=== PATIENT | female | born 1945 | race Caucasian/White ===

== ENCOUNTER 2023-01-19 12:47 | Inpatient (IN) | payer OTHER, SELFPAY ==
[2023-01-19] VITALS (12 sets, daily range): BP systolic 71–128; BP diastolic 43–59; PULSE 71–91; RESP 13–19; TEMP 36.6–37.8; O2SAT 97–100; BMI 24.2; BMI 24.7
[2023-01-19] MEDS: SODIUM CHLORIDE 0.9% 1,000 ML 1000 ML IV ×2 (13:17→14:20)
[2023-01-19] MEDS: PANTOPRAZOLE 40 MG VIAL 80 MG IV (13:35)
[2023-01-19 13:39] LABS: Add Manual Diff / Slide Review NO; Basophils Absolute Auto 100 /uL (0-100); Basophils Percent Auto 0.4 % (0-2); Eosinophils Absolute Auto 100 /uL (0-450); Eosinophils Percent Auto 0.4 % (2-4); Hematocrit 35.2 % (36-46); Hemoglobin 11.9 g/dL (12.0-16.0); Lymphocytes Absolute Auto 2800 /uL (1100-4500); Lymphocytes Percent Auto 20.4 % (25-40); Mean Corpuscular HGB Conc 33.9 % (30-36); Mean Corpuscular Volume 88.3 fL (80-100); Monocytes Absolute Auto 900 /uL (0-900); Monocytes Percent Auto 6.2 % (3-14); Neutrophils Absolute Auto 10100 /uL (1500-7000); Neutrophils Percent Auto 72.6 % (50-75); Platelet Count 166 X10^3/uL (150-400); Red Blood Cell Count 3.98 X10^6/uL (4.0-5.2); Red Cell Distribution Width 13.7 % (11.6-14.8)
--- NOTE | 2023-01-19 13:41 | DI.CT.S_ITS ---
PROCEDURE: CT ABDOMEN PELVIS W CON INDICATIONS: v/d TECHNIQUE: After the administration of intravenous contrast, axial sections acquired from the lung bases to the pubic symphysis. Coronal and sagittal reformats were performed. For radiation dose reduction, the following was used: automated exposure control, adjustment of mA and/or kV according to patient size. COMPARISON: None. FINDINGS: Image quality: Excellent. Lung bases: Unremarkable. Incidental note is made of a small posterior medial right diaphragmatic defect allowing herniation of a small amount of right upper quadrant retroperitoneal fat into the posterior pleural space. No associated ischemic injury is present. Heart: No significant findings. ABDOMEN: Liver: Unremarkable. Gallbladder: Unremarkable. Biliary ducts: Unremarkable. Pancreas: Unremarkable. Spleen: Unremarkable. Adrenal Glands: Unremarkable. Kidneys and Ureters: Unremarkable on the left but there is a 8 mm 1330 Hounsfield unit right mid kidney nonobstructive calculus involving the collecting system.. Stomach and Bowel: Stomach, small bowel loops, and colon are unremarkable. Peritoneum: No abnormal intraperitoneal fluid. No free air. Ventral Wall: No hernias. Abdominal Nodes: No retroperitoneal or mesenteric adenopathy by size criteria. Vessels: Aorta and inferior vena cava are normal in size. PELVIS: Pelvic Organs: Unremarkable except for heterogeneity and lobulation of the uterine margins and myometrium, likely reflecting fibroids.. Bladder: Unremarkable. Pelvic Nodes: No enlarged lymph nodes. Miscellaneous: No hernias are seen. Bones: Unremarkable. IMPRESSION: Incidental note is made of a small posterior right diaphragmatic hernia allowing subdiaphragmatic retroperitoneal fat to extend to a small degree into the right pleural space. This likely is asymptomatic by appearance. No source of current symptoms is identified. The stomach is not distended, no distal esophageal dilatation or mass is identified either. 8 mm nonobstructive calculus right kidney, probable uterine fibroids which could be further assessed by elective follow-up pelvic ultrasound if clinically indicated. Dictated by: Yoandy Lema M.D. on 01/19/2023 at 14:28 Approved by: Yoandy Lema M.D. on 01/19/2023 at 14:33
--- NOTE | 2023-01-19 13:41 | ED.NAVMDI ---
HPI - Nausea/Vomiting/Diarrhea General Chief complaint: Nausea/Vomiting/Diarrhea Stated complaint: Diarrhea/Vomiting few weeks Time Seen by Provider: 01/19/23 13:30 Source: patient Mode of arrival: Wheelchair Limitations: no limitations History of Present Illness HPI Narrative: This is a 77-year-old female with history of hypertension, dyslipidemia, has had recent electrolyte abnormalities and chronic diarrhea. Patient presents today with several weeks of diarrhea, vomiting at least once weekly she is vomited twice today she states it has been darker. She has not appreciated lack. Patient states she is felt lightheaded and unwell, she has not had a syncopal episode but states she is felt near. She denies chest pain, she denies shortness of breath. She describes fatigue. She states no abdominal back or flank pain. No dysuria, urgency frequency. Frequent regular diarrhea. She states she is been taking potassium, calcium and magnesium supplementation from her physician for this. Patient states she is had stool studies but does not describe any colonoscopy or EGD. She was seen on January 05 [facility] [place] had labs and she states had magnesium replaced. She did take 40 mg of lisinopril and 25 mg of HCTZ this morning prior to arrival. She states other than breast biopsies no other surgeries. No known drug allergies. No tobacco, drinks 1 alcoholic drink daily, no illicit. She lives in [place], her and her have a house in the area visiting currently. Related Data Home Medications Medication Instructions Recorded Confirmed atorvastatin 80 mg tablet 80 mg PO BEDTIME 01/19/23 01/19/23 hydrochlorothiazide 12.5 mg tablet 12.5 mg PO DAILY 01/19/23 01/19/23 lisinopril 40 mg tablet 40 mg PO DAILY 01/19/23 01/19/23 paroxetine HCl 10 mg tablet 10 mg PO BID 01/19/23 01/19/23 potassium chloride 20 mEq 20 meq PO DAILY 01/19/23 01/19/23 tablet,extended release(part/cryst) Allergies Allergy/AdvReac Type Severity Reaction Status Date / Time No Known Drug Allergies Allergy Verified 01/19/23 13:11 Review of Systems Review of Systems ROS Unobtainable: All systems reviewed & are unremarkable except as noted in HPI and below Patient History Medical History HOCM (hypertrophic obstructive cardiomyopathy) HTN (hypertension) Schatzki's ring of distal esophagus Secondary hyperparathyroidism Surgical History H/O esophagogastroduodenoscopy Social History household members: spouse Smoking Status: Former smoker alcohol intake: current Smoking Status: Former smoker alcohol intake frequency: 0-2 drinks per day Alcohol type: hard liquor Substance Use Type: does not use Exam Narrative Exam Narrative: GENERAL: Alert and oriented x three, pale female in moderate distress. HEENT: Head normocephalic, atraumatic, EOMI, pupils reactive, face symmetric, moist mucous membranes NECK: Supple, full range of motion CARDIOVASCULAR: Regular rate and rhythm without murmurs, rubs or gallops. RESPIRATORY: Breath sounds equal bilaterally, no wheezes rales or rhonchi. ABDOMEN: Soft, nontender. Nondistended. Normoactive bowel sounds all 4 quadrants. No guarding or rebound, rigidity, no mass, : No CVA tenderness EXTREMITIES: Normal range of motion, no clubbing or edema. Neurovascularly intact NEUROLOGICAL: Cranial nerves II through XII grossly intact. Moving all extremities SKIN: Warm, dry, no petechiae, no rashes or lesions. Initial Vital Signs Initial Vital Signs: Vital Signs Temperature 97.8 F 01/19/23 13:08 Pulse Rate 91 H 01/19/23 13:08 Respiratory Rate 18 01/19/23 13:08 Blood Pressure 88/53 L 01/19/23 13:08 Pulse Oximetry 100 01/19/23 13:08 Oxygen Delivery Method Room Air 01/19/23 13:08 Course Orders Ordered: ED Orders 01/19/23 13:29 Complete Blood Count AUTO DIFF Stat Comprehensive Metabolic Panel Stat Lactate (Lactic Acid) Stat Lipase Stat MAG [Magnesium] Stat PTT Partial Thromboplastin Tommy Stat Procalcitonin Stat Prothrombin Time INR Stat Type and Screen Stat 01/19/23 13:39 Gastric Occult with pH Stat 01/19/23 13:41 CT abdomen pelvis w con Stat 01/19/23 13:45 EKG-12 Lead Stat 01/19/23 14:28 GI Panel (Film Array) Stat 01/19/23 14:47 Blood Culture Stat Acetaminophen (Acetaminophen 325 Mg Tablet) 650 mg PO Q6H PRN PRN Reason: Fever/Mild Pain (1-3) Enoxaparin Sodium (Enoxaparin 40 Mg/0.4 Ml Syringe) 40 mg SUBCUT DAILY SHANNA Sodium Chloride (Normal Saline 0.9%) 1,000 mls @ 100 mls/hr IV CONT SHANNA Last Admin: 01/19/23 16:35 Dose: 100 mls/hr Documented By: NICOLE Morphine Sulfate (Morphine 4 Mg/Ml Inj) 3 mg IV Q4HR PRN PRN Reason: Pain, Severe (7-10) Naloxone HCl (Naloxone 0.4 Mg/Ml Vial) 0.2 mg IV Q2MIN PRN PRN Reason: Opiate Reversal Ondansetron HCl (Ondansetron 4 Mg/2 Ml Inj) 4 mg IV Q4HR PRN PRN Reason: Nausea And Vomiting Discontinued Medications Sodium Chloride (Normal Saline 0.9%) 1,000 mls @ 1,000 mls/hr IV BOLUS PRN PRN Reason: Fluid replacement Last Infusion: 01/19/23 14:39 Dose: 0 mls/hr Documented By: Admin: 01/19/23 14:20 Dose: 1,000 mls/hr Documented By: Infusion: 01/19/23 14:19 Dose: 0 mls/hr Documented By: Admin: 01/19/23 13:17 Dose: 1,000 mls/hr Documented By: ELMER Sodium Chloride (Normal Saline 0.9%) 1,000 mls @ 1,000 mls/hr IV BOLUS PRN PRN Reason: Fluid replacement Piperacillin Sod/Tazobactam (Sod 4.5 gm/ Sodium Chloride) 100 mls @ 200 mls/hr IV NOW ONE Stop: 01/19/23 14:30 Last Infusion: 01/19/23 15:54 Dose: 0 mls/hr Documented By: Admin: 01/19/23 14:58 Dose: 200 mls/hr Documented By: KARIME Lactated Ringer's (Lactated Ringers) 1,000 mls @ 1,000 mls/hr IV BOLUS ONE Stop: 01/19/23 15:48 Last Infusion: 01/19/23 15:55 Dose: 0 mls/hr Documented By: Admin: 01/19/23 14:57 Dose: 1,000 mls/hr Documented By: AKRIME Ondansetron HCl (Ondansetron 4 Mg/2 Ml Inj) 4 mg IV NOW PRN PRN Reason: Nausea And Vomiting Ondansetron HCl (Ondansetron 4 Mg Odt) 4 mg SL NOW PRN PRN Reason: Nausea And Vomiting Pantoprazole Sodium (Pantoprazole 40 Mg Vial) 80 mg IV NOW ONE Stop: 01/19/23 13:13 Last Admin: 01/19/23 13:35 Dose: 80 mg Documented By: KARIME Vital Signs Vital signs: Vital Signs - 8 hr 01/19/23 13:08 01/19/23 13:20 01/19/23 13:25 Temperature 97.8 F Pulse Rate 91 H 72 74 Respiratory Rate 18 13 14 Blood Pressure 88/53 L 77/47 L 71/43 L Pulse Oximetry 100 98 98 Oxygen Delivery Method Room Air Room Air Room Air 01/19/23 13:40 01/19/23 13:35 01/19/23 15:01 Temperature Pulse Rate 71 74 77 Respiratory Rate 14 16 19 Blood Pressure 77/52 L 88/53 L 93/50 L Pulse Oximetry 99 98 99 Oxygen Delivery Method Room Air Room Air Room Air MDM - Nausea/Vomiting/Diarrhea Lab Data 01/19/23 13:29 01/19/23 13:29 Labs: Lab Results 01/19/23 01/19/23 01/19/23 Range/Units 13:29 13:29 13:29 WBC 14.0 H (4.5-11.0) X10^3/uL RBC 3.98 L (4.0-5.2) X10^6/uL Hgb 11.9 L (12.0-16.0) g/dL Hct 35.2 L (36-46) % MCV 88.3 (80-100) fL MCH 30.0 (26-34) PG MCHC 33.9 (30-36) % RDW 13.7 (11.6-14.8) % Plt Count 166 (150-400) X10^3/uL Neut % (Auto) 72.6 (50-75) % Lymph % (Auto) 20.4 L (25-40) % [place] % (Auto) 6.2 (3-14) % Eos % (Auto) 0.4 L (2-4) % Baso % (Auto) 0.4 (0-2) % Neut # (Auto) 64053 H (0401-6499) /uL Lymph # (Auto) 2800 (9035-0531) /uL [place] # (Auto) 900 (0-900) /uL Eos # (Auto) 100 (0-450) /uL Baso # (Auto) 100 (0-100) /uL PT 10.7 (10.1-12.7) SECONDS INR 0.9 (0.9-1.3) APTT 21 L (26-36) SECONDS Sodium 125 L (137-145) mmol/L Potassium 4.2 (3.4-5.1) mmol/L Chloride 92 L (98-107) mmol/L Carbon Dioxide 26 (22-32) mmol/L BUN 27 H (7-17) mg/dL Creatinine 1.03 (0.52-1.04) mg/dL Estimated GFR 56 L (>60) mL/min BUN/Creatinine Ratio 26.2 H (6-22) Glucose 147 H (80-110) mg/dL Lactate (0.7-2.1) mmol/L Calcium 10.7 H (8.4-10.2) mg/dL Magnesium (1.6-2.3) mg/dL Total Bilirubin 1.2 (0.2-1.3) mg/dL AST 28 (14-36) IU/L ALT 18 (<35) IU/L Alkaline Phosphatase 69 (38-126) U/L Total Protein 7.2 (6.3-8.2) g/dL Albumin 4.3 (3.5-5.0) g/dL Globulin 2.9 (1.7-4.1) g/dL Albumin/Globulin Ratio 1.5 (1.0-2.8) Lipase (23-300) U/L Procalcitonin (<0.5) ng/mL Urine RBC (0-5/HPF) Urine WBC (0-5/HPF) Ur Squamous Epith Cells (0-5/HPF) Urine Bacteria (None) Ur Culture Indicated? Blood Type Antibody Screen 01/19/23 01/19/23 01/19/23 Range/Units 13:29 13:29 13:29 WBC (4.5-11.0) X10^3/uL RBC (4.0-5.2) X10^6/uL Hgb (12.0-16.0) g/dL Hct (36-46) % MCV (80-100) fL MCH (26-34) PG MCHC (30-36) % RDW (11.6-14.8) % Plt Count (150-400) X10^3/uL Neut % (Auto) (50-75) % Lymph % (Auto) (25-40) % [place] % (Auto) (3-14) % Eos % (Auto) (2-4) % Baso % (Auto) (0-2) % Neut # (Auto) (5888-6911) /uL Lymph # (Auto) (2798-0646) /uL [place] # (Auto) (0-900) /uL Eos # (Auto) (0-450) /uL Baso # (Auto) (0-100) /uL PT (10.1-12.7) SECONDS INR (0.9-1.3) APTT (26-36) SECONDS Sodium (137-145) mmol/L Potassium (3.4-5.1) mmol/L Chloride (98-107) mmol/L Carbon Dioxide (22-32) mmol/L BUN (7-17) mg/dL Creatinine (0.52-1.04) mg/dL Estimated GFR (>60) mL/min BUN/Creatinine Ratio (6-22) Glucose (80-110) mg/dL Lactate 3.2 H (0.7-2.1) mmol/L Calcium (8.4-10.2) mg/dL Magnesium (1.6-2.3) mg/dL Total Bilirubin (0.2-1.3) mg/dL AST (14-36) IU/L ALT (<35) IU/L Alkaline Phosphatase (38-126) U/L Total Protein (6.3-8.2) g/dL Albumin (3.5-5.0) g/dL Globulin (1.7-4.1) g/dL Albumin/Globulin Ratio (1.0-2.8) Lipase 240 (23-300) U/L Procalcitonin 0.05 (<0.5) ng/mL Urine RBC (0-5/HPF) Urine WBC (0-5/HPF) Ur Squamous Epith Cells (0-5/HPF) Urine Bacteria (None) Ur Culture Indicated? Blood Type A Negative Antibody Screen Negative 01/19/23 01/19/23 Range/Units 13:29 15:15 WBC (4.5-11.0) X10^3/uL RBC (4.0-5.2) X10^6/uL Hgb (12.0-16.0) g/dL Hct (36-46) % MCV (80-100) fL MCH (26-34) PG MCHC (30-36) % RDW (11.6-14.8) % Plt Count (150-400) X10^3/uL Neut % (Auto) (50-75) % Lymph % (Auto) (25-40) % [place] % (Auto) (3-14) % Eos % (Auto) (2-4) % Baso % (Auto) (0-2) % Neut # (Auto) (1206-3002) /uL Lymph # (Auto) (8663-2897) /uL [place] # (Auto) (0-900) /uL Eos # (Auto) (0-450) /uL Baso # (Auto) (0-100) /uL PT (10.1-12.7) SECONDS INR (0.9-1.3) APTT (26-36) SECONDS Sodium (137-145) mmol/L Potassium (3.4-5.1) mmol/L Chloride (98-107) mmol/L Carbon Dioxide (22-32) mmol/L BUN (7-17) mg/dL Creatinine (0.52-1.04) mg/dL Estimated GFR (>60) mL/min BUN/Creatinine Ratio (6-22) Glucose (80-110) mg/dL Lactate (0.7-2.1) mmol/L Calcium (8.4-10.2) mg/dL Magnesium 2.1 (1.6-2.3) mg/dL Total Bilirubin (0.2-1.3) mg/dL AST (14-36) IU/L ALT (<35) IU/L Alkaline Phosphatase (38-126) U/L Total Protein (6.3-8.2) g/dL Albumin (3.5-5.0) g/dL Globulin (1.7-4.1) g/dL Albumin/Globulin Ratio (1.0-2.8) Lipase (23-300) U/L Procalcitonin (<0.5) ng/mL Urine RBC 0-1/hpf (0-5/HPF) Urine WBC 0-1/hpf (0-5/HPF) Ur Squamous Epith Cells None seen (0-5/HPF) Urine Bacteria None seen (None) Ur Culture Indicated? Cult not indicated Blood Type Antibody Screen Urine Dip Bedside Urine Glucose Negative Bedside Urine Bilirubin - Negative Bedside Urine Ketone - Negative Urine Specific [place] 1.010 Bedside Urine Occult Blood +/- Bedside Urine pH 6.0 Bedside Urine Protein - Negative Bedside Urine Urobilinogen - Negative Bedside Urine Nitrite - Negative Bedside Urine Leukocytes - Negative Esterase Imaging Data CT scan - abdomen/pelvis: Radiologist's Impression: [address] [address] [address] Scan Report Signed Patient: Abelino Villarreal MR#: [id number] : 1945 Acct:[id number] Age/Sex: 77 / F Date of Service: 01/19/23 Loc: ED Accession Number: [id number] ?? Procedure: CT abdomen pelvis w con Ordering Provider: Destinee Alfaro D.O. PROCEDURE:? CT ABDOMEN PELVIS W CON ? INDICATIONS:? v/d ? TECHNIQUE:? After the administration of intravenous contrast, axial sections acquired from the lung bases to the pubic symphysis.? Coronal and sagittal reformats were performed.? For radiation dose reduction, the following was used:? automated exposure control, adjustment of mA and/or kV according to patient size.? ? COMPARISON:? None. ? FINDINGS:? Image quality:? Excellent.? ? Lung bases:? Unremarkable.? Incidental note is made of a small posterior medial right diaphragmatic defect allowing herniation of a small amount of right upper quadrant retroperitoneal fat into the posterior pleural space.? No associated ischemic injury is present. Heart:? No significant findings. ? ABDOMEN: Liver:? Unremarkable.? ? Gallbladder:? Unremarkable.? ? Biliary ducts:? Unremarkable.? ? Pancreas:? Unremarkable.? ? Spleen:? Unremarkable.? ? Adrenal Glands:? Unremarkable.? ? Kidneys and Ureters:? Unremarkable on the left but there is a 8 mm 1330 Hounsfield unit right mid kidney nonobstructive calculus involving the collecting system..? ? ? Stomach and Bowel:? Stomach, small bowel loops, and colon are unremarkable.? Peritoneum:? No abnormal intraperitoneal fluid.? No free air.? ? Ventral Wall: ? No hernias.? Abdominal Nodes:? No retroperitoneal or mesenteric adenopathy by size criteria.? Vessels:? Aorta and inferior vena cava are normal in size.? ? PELVIS: Pelvic Organs:? Unremarkable except for heterogeneity and lobulation of the uterine margins and myometrium, likely reflecting fibroids..? ? Bladder:? Unremarkable.? ? Pelvic Nodes: No enlarged lymph nodes.? Miscellaneous: No hernias are seen. ? ? ? Bones:? Unremarkable.? IMPRESSION:? Incidental note is made of a small posterior right diaphragmatic hernia allowing subdiaphragmatic retroperitoneal fat to extend to a small degree into the right pleural space.? This likely is asymptomatic by appearance. ? No source of current symptoms is identified.? The stomach is not distended, no distal esophageal dilatation or mass is identified either. ? 8 mm nonobstructive calculus right kidney, probable uterine fibroids which could be further assessed by elective follow-up pelvic ultrasound if clinically indicated.? ? Dictated by: Yoandy Lema M.D. on 01/19/2023 at 14:28 ? ? Approved by: Yoandy Lema M.D. on 01/19/2023 at 14:33?? ECG Data Attestation: I personally reviewed and interpreted this ECG as follows: Prior ECG tracings: not available for review Interpretation: Sinus rhythm first-degree AV block, occasional PVC. Rate of 71 CO 216 QRS of [address] No prior for comparison. MDM Narrative Medical decision making narrative: 77-year-old female complaint of vomiting intermittently, diarrhea persistently for several months who comes in with lightheadedness, fatigue and hypotensive. Patient describes chronic diarrhea, she states it has been present for months she is had intermittent vomiting she had 2 episodes today. There is report of dark emesis in the department but patient did not actually have any dark emesis. Patient appears to be hyponatremic. Leukocytosis of 14 white count 11 hematocrit 35, platelets are 166. Coags are negative, patient's hyponatremic with a sodium of 125, potassium 4.2 chloride 92, CO2 is 26 with a BUN of 27 and creatinine 1.03. Glucose is 147 lactate was 3.2 with a calcium at 10.7. LFTs are otherwise negative procalcitonin negative. Blood cultures were obtained. Patient's imaging with vomiting and diarrhea shows 8 mm right mid kidney nonobstructive calculus in the collecting system. Otherwise no acute changes there is some heterogeneity in lobulation of the uterine margins in myometrium likely reflecting fibroids. Patient received 2 L (30cc/kg bolus) she had some improvement of her blood pressure map was more into the high 60s but somewhat labile drops down to the 70s again. Patient had bladder scan she would not been able to give urine sample. Additional fluids were given. Plan for PICC Line placement for potential pressors. Attempting to get records from [place] [facility]. Has not been successful so far. Patient notes multiple issues with electrolyte abnormalities in the past. Discussed with Dr. Krueger who accepts for admission. Pressure has been more stable map has been more in the 60s. Have not initiated pressors. Discharge Plan Departure Patient Disposition: Admitted As Inpatient Clinical Impression: Hyponatremia, Chronic diarrhea Admit Date/Time: 01/19/23 15:24 Admit Provider: Conrad Krueger
[2023-01-19 13:48] LABS: INR 0.9 (0.9-1.3); Prothrombin Time 10.7 SECONDS (10.1-12.7)
[2023-01-19 13:50] LABS: PTT Partial Thromboplastin Tim 21 SECONDS (26-36)
[2023-01-19 13:53] LABS: Lactate (Lactic Acid) 3.2 mmol/L (0.7-2.1)
[2023-01-19 13:54] LABS: Alanine Aminotransferase 18 IU/L (<35); Albumin 4.3 g/dL (3.5-5.0); Albumin Globulin Ratio 1.5 (1.0-2.8); Alkaline Phosphatase 69 U/L (38-126); Aspartate Aminotransferase 28 IU/L (14-36); BUN Creatinine Ratio 26.2 (6-22); Bilirubin Total 1.2 mg/dL (0.2-1.3); Blood Urea Nitrogen 27 mg/dL (7-17); Calcium 10.7 mg/dL (8.4-10.2); Carbon Dioxide 26 mmol/L (22-32); Chloride 92 mmol/L (98-107); Estimated Glomerular Filt Rate 56 mL/min (>60); Globulin 2.9 g/dL (1.7-4.1); Glucose 147 mg/dL (80-110); HEMOLYSIS < 15 (0-50); Potassium 4.2 mmol/L (3.4-5.1); Sodium 125 mmol/L (137-145); Total Protein 7.2 g/dL (6.3-8.2)
[2023-01-19 13:55] LABS: Magnesium 2.1 mg/dL (1.6-2.3)
[2023-01-19 14:23] LABS: Lipase 240 U/L (23-300)
[2023-01-19 14:24] LABS: Procalcitonin 0.05 ng/mL (<0.5)
[2023-01-19] MEDS: LACTATED RINGERS 1,000 ML 1000 ML IV (14:57)
[2023-01-19] MEDS: PIPERACILLIN/TAZO 4.5 GM in SODIUM CHLORIDE 0.9% 100 ML IV (14:58)
[2023-01-19 15:42] LABS: Reflexed Lactate in 2 Hours Y
[2023-01-19 16:09] LABS: Lactate 2HR (Lactic Acid Rflx) 1.2 mmol/L (0.7-2.1)
[2023-01-19] MEDS: SODIUM CHLORIDE 0.9% 1,000 ML 100 ML IV (16:35)
--- NOTE | 2023-01-19 16:58 | P.HP_ITS ---
History of Present Illness History of Present Illness Date Patient Seen: 01/19/23 Time Patient Seen: 16:59 Chief complaint: D Narrative: This is a 77 year old female with PMH of chronic diarrhea, secondary hyperparathyroidism (due to electrolyte abnormalities), HTN with HCM, GERD with schatzski ring who presented with worsening weakness over the past couple of we aks. She has had diarrhea her whole life and has been able to deal with it without issue. She reports a dark color, but explosive bowel movements and urgency when she feels the need to go. She denies rectal or abdominal pain. She has intermittent nausea and vomiting with episodes. She has had an extensive workup with her PCP, including lab testing and colonoscopy approx 6 months ago which was normal (I was able to review on patient's portal on her phone with her permission). What has been new for her is profound fatigue and weakness which happens after episodes of her diarrhea. She denies numbness, tingling. She has not had any weight loss or fever. She denies chest pain, rash, palpitations, shortness of breath, or leg edema. She traveled to [facility] recently, but diarrhea predates the trip. She denies any sick contacts. Per her report, she has tried to cut down on alcohol (has a small glass of gin and tonic daily), and has cut out dairy products from her diet without much success in controlling her diarrhea. She has not tried immodium. She did stop taking omeprazole at the recommendation of her PCP to attempt to help with her diarrhea but has not been effective. [id number]: Colonoscopy, multiple polyps, biopsies benign. Random biopsies negative for inflammation, including microscopic colitis or inflammatory bowel disease. 01/04/23: sodium 143, PTH 173. In the emergency room, patient was hypotensive, but the remainder of her vitals were unremarkable. Labs were notable for mild leukocytosis, anemia with Hg of 12. Sodium was 125, cl 92, creatinine 1.03 and glucose 147. Calcium was 10.7. Lactate was elevated but improved to 1.2 after fluids. Procalcitionin was negative. UA was negative, and CT abdomen showed a diaphragmatic hernia and incidental uterine fibroids but no acute pathology or inflammation. Patient was admitted for further management of presumed hypovolemic hyponatremia. [facility] Medical History HOCM (hypertrophic obstructive cardiomyopathy) HTN (hypertension) Schatzki's ring of distal esophagus Secondary hyperparathyroidism Surgical History H/O esophagogastroduodenoscopy Social History household members: spouse Smoking Status: Former smoker alcohol intake: current Meds Home Medications and Allergies Home Medications Medication Instructions Recorded Confirmed Type atorvastatin 80 mg tablet 80 mg PO BEDTIME 01/19/23 01/19/23 History hydrochlorothiazide 12.5 mg tablet 12.5 mg PO DAILY 01/19/23 01/19/23 History lisinopril 40 mg tablet 40 mg PO DAILY 01/19/23 01/19/23 History paroxetine HCl 10 mg tablet 10 mg PO BID 01/19/23 01/19/23 History potassium chloride 20 mEq 20 meq PO DAILY 01/19/23 01/19/23 History tablet,extended release(part/cryst) Allergies Allergy/AdvReac Type Severity Reaction Status Date / Time No Known Drug Allergies Allergy Verified 01/19/23 13:11 Review of Systems Review of Systems Narrative: All other systems reviewed with the patient and are negative unless otherwise stated. Exam Vital Signs (past 8 hours): - 01/19/23 13:08 01/19/23 13:20 01/19/23 13:25 Temperature 97.8 F Pulse Rate 91 H 72 74 Respiratory Rate 18 13 14 Blood Pressure 88/53 L 77/47 L 71/43 L Pulse Oximetry 100 98 98 Oxygen Delivery Method Room Air Room Air Room Air Oxygen Flow Rate 01/19/23 13:40 01/19/23 13:35 01/19/23 15:01 Temperature Pulse Rate 71 74 77 Respiratory Rate 14 16 19 Blood Pressure 77/52 L 88/53 L 93/50 L Pulse Oximetry 99 98 99 Oxygen Delivery Method Room Air Room Air Room Air Oxygen Flow Rate 01/19/23 16:08 01/19/23 16:20 Temperature 100.1 F H Pulse Rate 85 83 Respiratory Rate 16 18 Blood Pressure 99/55 L 94/59 L Pulse Oximetry 97 99 Oxygen Delivery Method Room Air Oxygen Flow Rate 0 Oxygen Delivery Method Room Air Oxygen Flow Rate 0 Narrative Exam Narrative: General:? Patient is well developed and well nourished, in no distress at this time. HEENT:? Normocephalic, atraumatic, extraocular muscles intact, oral pharynx is clear and mucous membranes are moist. Neck: supple and symmetric, trachea is midline, no cervical adenopathy. Negative for JVD Chest:? Normal AP diameter and contour without kyphoscoliosis, no tachypnea, equal chest rise bilaterally. Lungs:? CTA b/l no wheezing rhonchi or rales. Cardio:?RRR no m/r/g. Abdomen: S NT ND. No CVA tenderness. Musculoskeletal:? Muscle strength and tone are equal within normal limits, no deformity. Extremities: No edema or joint effusions. No cyanosis or clubbing. Skin:? Pale,? Warm to touch,dry and intact without rashes, ulcerations or petechiae.? Neuro:? Alert and orientated x3,? sensation to touch intact in all extremities, no gross deficits noted of cranial nerves. Psych:? Patient has a well-kept appearance, appropriate affect, mental status attitude thought context and judgment are appropriate for age. Objective ECG Impression: Sinus rhythm with 1st degree AV block with occasional premature ventricular complexes as interpreted by me Labs 01/19/23 13:29 01/19/23 13:29 Labs: Laboratory Results - last 24 hr 01/19/23 01/19/23 01/19/23 13:29 13:29 13:29 WBC 14.0 H RBC 3.98 L Hgb 11.9 L Hct 35.2 L MCV 88.3 MCH 30.0 MCHC 33.9 RDW 13.7 Plt Count 166 Neut % (Auto) 72.6 Lymph % (Auto) 20.4 L [place] % (Auto) 6.2 Eos % (Auto) 0.4 L Baso % (Auto) 0.4 Neut # (Auto) 11509 H Lymph # (Auto) 2800 [place] # (Auto) 900 Eos # (Auto) 100 Baso # (Auto) 100 PT 10.7 INR 0.9 APTT 21 L Sodium 125 L Potassium 4.2 Chloride 92 L Carbon Dioxide 26 BUN 27 H Creatinine 1.03 Estimated GFR 56 L BUN/Creatinine Ratio 26.2 H Glucose 147 H Lactate Calcium 10.7 H Magnesium Total Bilirubin 1.2 AST 28 ALT 18 Alkaline Phosphatase 69 Total Protein 7.2 Albumin 4.3 Globulin 2.9 Albumin/Globulin Ratio 1.5 Lipase Procalcitonin Blood Type Antibody Screen 01/19/23 01/19/23 01/19/23 13:29 13:29 13:29 WBC RBC Hgb Hct MCV MCH MCHC RDW Plt Count Neut % (Auto) Lymph % (Auto) [place] % (Auto) Eos % (Auto) Baso % (Auto) Neut # (Auto) Lymph # (Auto) [place] # (Auto) Eos # (Auto) Baso # (Auto) PT INR APTT Sodium Potassium Chloride Carbon Dioxide BUN Creatinine Estimated GFR BUN/Creatinine Ratio Glucose Lactate 3.2 H Calcium Magnesium Total Bilirubin AST ALT Alkaline Phosphatase Total Protein Albumin Globulin Albumin/Globulin Ratio Lipase 240 Procalcitonin 0.05 Blood Type A Negative Antibody Screen Negative 01/19/23 01/19/23 13:29 15:56 WBC RBC Hgb Hct MCV MCH MCHC RDW Plt Count Neut % (Auto) Lymph % (Auto) [place] % (Auto) Eos % (Auto) Baso % (Auto) Neut # (Auto) Lymph # (Auto) [place] # (Auto) Eos # (Auto) Baso # (Auto) PT INR APTT Sodium Potassium Chloride Carbon Dioxide BUN Creatinine Estimated GFR BUN/Creatinine Ratio Glucose Lactate 1.2 Calcium Magnesium 2.1 Total Bilirubin AST ALT Alkaline Phosphatase Total Protein Albumin Globulin Albumin/Globulin Ratio Lipase Procalcitonin Blood Type Antibody Screen Assessment & Plan Assessment & Plan narrative: 1. Hyponatremia, acute, present on admission - suspect hypovolemic given chronic diarrhea, though not clear why she is now hyponatremic and not in the past given chronic diarrhea. Last sodium 01/04 reviewed and was 143. - continue NS at 100 cc per hour. - see problem 2 below. 2. Chronic diarrhea - check C. diff / GI panel given recent travel. if negative start immodium as patient has not tried this in the past. - patient has had extensive workup for possibe inflammatory or microscopic colitis in the past and has been negative. Will not obtain additional workup here other than above GI panel 3. h/o HTN - hold home medications, BP soft on admission. 4. Hypotension, present on admission, due to hypovolemia - suspect due to dehydration, leukocytosis likely reactive but will rule out infectious etiologies as noted above. UA is negative. GI panel ordered. - continue IV fluids. I have utilized all available immediate resources to obtain, update, or review the patient's current medications. Dispo: Admitted as inpatient, her stay is expected to exceed two midnights Code: Full, surrogate is patient's daughter DVT: Orquideax daily Discussed plan of care with the patient. I have reviewed patient's outside records, including endoscopy reports and PCP notes as well as lab work. I have reviewed patient's EKG, lab findings, and imaging here. Additional history obtained from the ER provider. Quality VTE Deep Vein Thrombosis/Pulmonary Embolism Present on Admission: No
[2023-01-19 17:06] LABS: Bacteria Urine None Seen; Culture Indicated Urine Cult Not Indicated; RBC Urine 0-1/HPF (0-5/HPF); Squamous Epithelial Cell Urine None Seen (0-5/HPF); WBC Urine 0-1/HPF (0-5/HPF)
--- NOTE | 2023-01-19 18:51 | PC.NURSE ---
Day shift: Patient admitted from ED at 1620. Pt has had no nausea/vomiting or diarrhea since admit to the floor. PIV running NS @ 100. BP 94/59. MD aware. Pt dizzy upon getting up. Denies dizziness while laying down. On telemetry. Skin in tact. Na low - MD aware. Needs GI specimen - pt aware to have BM in hat. No BM yet. Will continue to monitor.
[2023-01-19 20:03] LABS: BUN Creatinine Ratio 21.3 (6-22); Blood Urea Nitrogen 20 mg/dL (7-17); Calcium 9.2 mg/dL (8.4-10.2); Carbon Dioxide 22 mmol/L (22-32); Chloride 102 mmol/L (98-107); Estimated Glomerular Filt Rate > 60 mL/min (>60); Glucose 129 mg/dL (80-110); HEMOLYSIS < 15 (0-50); Potassium 4.7 mmol/L (3.4-5.1); Sodium 128 mmol/L (137-145)
[2023-01-20] MEDS: SODIUM CHLORIDE 0.9% 1,000 ML 100 ML IV (02:13)
[2023-01-20 03:46] VITALS: BP 107/59; PULSE 67; RESP 18; TEMP 37.7; O2SAT 100
[2023-01-20 05:00] VITALS: O2SAT 100
[2023-01-20 05:37] LABS: Add Manual Diff / Slide Review NO; Basophils Absolute Auto 100 /uL (0-100); Basophils Percent Auto 0.7 % (0-2); Eosinophils Absolute Auto 200 /uL (0-450); Eosinophils Percent Auto 1.7 % (2-4); Hematocrit 29.7 % (36-46); Hemoglobin 10.2 g/dL (12.0-16.0); Lymphocytes Absolute Auto 2100 /uL (1100-4500); Lymphocytes Percent Auto 22.3 % (25-40); Mean Corpuscular HGB Conc 34.5 % (30-36); Mean Corpuscular Hemoglobin 30.5 PG (26-34); Mean Corpuscular Volume 88.3 fL (80-100); Monocytes Absolute Auto 600 /uL (0-900); Monocytes Percent Auto 6.6 % (3-14); Neutrophils Absolute Auto 6600 /uL (1500-7000); Neutrophils Percent Auto 68.7 % (50-75); Platelet Count 113 X10^3/uL (150-400); Red Blood Cell Count 3.36 X10^6/uL (4.0-5.2); Red Cell Distribution Width 13.7 % (11.6-14.8); White Blood Cell Count 9.6 X10^3/uL (4.5-11.0)
[2023-01-20 05:45] LABS: Alanine Aminotransferase 17 IU/L (<35); Albumin 3.4 g/dL (3.5-5.0); Albumin Globulin Ratio 1.3 (1.0-2.8); Alkaline Phosphatase 49 U/L (38-126); Aspartate Aminotransferase 26 IU/L (14-36); Bilirubin Total 0.8 mg/dL (0.2-1.3); Blood Urea Nitrogen 16 mg/dL (7-17); Calcium 9.5 mg/dL (8.4-10.2); Carbon Dioxide 23 mmol/L (22-32); Chloride 103 mmol/L (98-107); Estimated Glomerular Filt Rate > 60 mL/min (>60); Globulin 2.7 g/dL (1.7-4.1); Glucose 90 mg/dL (80-110); HEMOLYSIS < 15 (0-50); Magnesium 1.7 mg/dL (1.6-2.3); Potassium 4.5 mmol/L (3.4-5.1); Sodium 133 mmol/L (137-145); Total Protein 6.1 g/dL (6.3-8.2)
[2023-01-20 06:43] LABS: TSH w/ Reflex to FT4 1.51 uIU/mL (0.47-4.68)
[2023-01-20 07:00] VITALS: BP 142/76; PULSE 84; RESP 17; TEMP 36.4; O2SAT 98
[2023-01-20 09:00] VITALS: O2SAT 98
--- NOTE | 2023-01-20 09:42 | P.PN_ITS ---
Exam Vital Signs (past 8 hours): - 01/20/23 03:46 01/20/23 05:00 Temperature 99.9 F H Pulse Rate 67 Respiratory Rate 18 Blood Pressure 107/59 L Pulse Oximetry 100 100 Oxygen Delivery Method Room Air Oxygen Flow Rate 0 Oxygen Delivery Method Room Air Oxygen Flow Rate 0 Narrative Exam Narrative: General:? Patient is well developed and well nourished, in no distress at this time. HEENT:? Normocephalic, atraumatic, extraocular muscles intact, oral pharynx is clear and mucous membranes are moist. Neck: supple and symmetric, trachea is midline, no cervical adenopathy. Negative for JVD Chest:? Normal AP diameter and contour without kyphoscoliosis, no tachypnea, equal chest rise bilaterally. Lungs:? CTA b/l no wheezing rhonchi or rales. Cardio:?RRR no m/r/g. Abdomen: S NT ND. No CVA tenderness. Musculoskeletal:? Muscle strength and tone are equal within normal limits, no deformity. Extremities: No edema or joint effusions. No cyanosis or clubbing. Skin:? Pale,? Warm to touch,dry and intact without rashes, ulcerations or petechiae.? Neuro:? Alert and orientated x3,? sensation to touch intact in all extremities, no gross deficits noted of cranial nerves. Psych:? Patient has a well-kept appearance, appropriate affect, mental status attitude thought context and judgment are appropriate for age. Objective Labs 01/20/23 05:21 01/20/23 05:21 Labs: Laboratory Results - last 24 hr 01/19/23 01/19/23 01/19/23 13:29 13:29 13:29 WBC 14.0 H RBC 3.98 L Hgb 11.9 L Hct 35.2 L MCV 88.3 MCH 30.0 MCHC 33.9 RDW 13.7 Plt Count 166 Neut % (Auto) 72.6 Lymph % (Auto) 20.4 L [place] % (Auto) 6.2 Eos % (Auto) 0.4 L Baso % (Auto) 0.4 Neut # (Auto) 53919 H Lymph # (Auto) 2800 [place] # (Auto) 900 Eos # (Auto) 100 Baso # (Auto) 100 PT 10.7 INR 0.9 APTT 21 L Sodium 125 L Potassium 4.2 Chloride 92 L Carbon Dioxide 26 BUN 27 H Creatinine 1.03 Estimated GFR 56 L BUN/Creatinine Ratio 26.2 H Glucose 147 H Lactate Calcium 10.7 H Magnesium Total Bilirubin 1.2 AST 28 ALT 18 Alkaline Phosphatase 69 Total Protein 7.2 Albumin 4.3 Globulin 2.9 Albumin/Globulin Ratio 1.5 Lipase Procalcitonin TSH Urine RBC Urine WBC Ur Squamous Epith Cells Urine Bacteria Ur Culture Indicated? Blood Type Antibody Screen 01/19/23 01/19/23 01/19/23 13:29 13:29 13:29 WBC RBC Hgb Hct MCV MCH MCHC RDW Plt Count Neut % (Auto) Lymph % (Auto) [place] % (Auto) Eos % (Auto) Baso % (Auto) Neut # (Auto) Lymph # (Auto) [place] # (Auto) Eos # (Auto) Baso # (Auto) PT INR APTT Sodium Potassium Chloride Carbon Dioxide BUN Creatinine Estimated GFR BUN/Creatinine Ratio Glucose Lactate 3.2 H Calcium Magnesium Total Bilirubin AST ALT Alkaline Phosphatase Total Protein Albumin Globulin Albumin/Globulin Ratio Lipase 240 Procalcitonin 0.05 TSH Urine RBC Urine WBC Ur Squamous Epith Cells Urine Bacteria Ur Culture Indicated? Blood Type A Negative Antibody Screen Negative 01/19/23 01/19/23 01/19/23 13:29 15:15 15:56 WBC RBC Hgb Hct MCV MCH MCHC RDW Plt Count Neut % (Auto) Lymph % (Auto) [place] % (Auto) Eos % (Auto) Baso % (Auto) Neut # (Auto) Lymph # (Auto) [place] # (Auto) Eos # (Auto) Baso # (Auto) PT INR APTT Sodium Potassium Chloride Carbon Dioxide BUN Creatinine Estimated GFR BUN/Creatinine Ratio Glucose Lactate 1.2 Calcium Magnesium 2.1 Total Bilirubin AST ALT Alkaline Phosphatase Total Protein Albumin Globulin Albumin/Globulin Ratio Lipase Procalcitonin TSH Urine RBC 0-1/hpf Urine WBC 0-1/hpf Ur Squamous Epith Cells None seen Urine Bacteria None seen Ur Culture Indicated? Cult not indicated Blood Type Antibody Screen 01/19/23 01/20/23 01/20/23 19:36 05:21 05:21 WBC 9.6 RBC 3.36 L Hgb 10.2 L Hct 29.7 L MCV 88.3 MCH 30.5 MCHC 34.5 RDW 13.7 Plt Count 113 L Neut % (Auto) 68.7 Lymph % (Auto) 22.3 L [place] % (Auto) 6.6 Eos % (Auto) 1.7 L Baso % (Auto) 0.7 Neut # (Auto) 6600 Lymph # (Auto) 2100 [place] # (Auto) 600 Eos # (Auto) 200 Baso # (Auto) 100 PT INR APTT Sodium 128 L 133 L Potassium 4.7 4.5 Chloride 102 103 Carbon Dioxide 22 23 BUN 20 H 16 Creatinine 0.94 0.84 Estimated GFR > 60 > 60 BUN/Creatinine Ratio 21.3 19.0 Glucose 129 H 90 Lactate Calcium 9.2 9.5 Magnesium 1.7 Total Bilirubin 0.8 AST 26 ALT 17 Alkaline Phosphatase 49 Total Protein 6.1 L Albumin 3.4 L Globulin 2.7 Albumin/Globulin Ratio 1.3 Lipase Procalcitonin TSH Urine RBC Urine WBC Ur Squamous Epith Cells Urine Bacteria Ur Culture Indicated? Blood Type Antibody Screen 01/20/23 05:21 WBC RBC Hgb Hct MCV MCH MCHC RDW Plt Count Neut % (Auto) Lymph % (Auto) [place] % (Auto) Eos % (Auto) Baso % (Auto) Neut # (Auto) Lymph # (Auto) [place] # (Auto) Eos # (Auto) Baso # (Auto) PT INR APTT Sodium Potassium Chloride Carbon Dioxide BUN Creatinine Estimated GFR BUN/Creatinine Ratio Glucose Lactate Calcium Magnesium Total Bilirubin AST ALT Alkaline Phosphatase Total Protein Albumin Globulin Albumin/Globulin Ratio Lipase Procalcitonin TSH 1.51 Urine RBC Urine WBC Ur Squamous Epith Cells Urine Bacteria Ur Culture Indicated? Blood Type Antibody Screen [facility] Medical History HOCM (hypertrophic obstructive cardiomyopathy) HTN (hypertension) Schatzki's ring of distal esophagus Secondary hyperparathyroidism Surgical History H/O esophagogastroduodenoscopy Social History household members: spouse Smoking Status: Former smoker alcohol intake: current Assessment & Plan Assessment & Plan narrative: 1. Hyponatremia, acute, present on admission ?- suspect hypovolemic given chronic diarrhea, though not clear why she is now hyponatremic and not in the past given chronic diarrhea. Last sodium 01/04 reviewed and was 143. ?- continue NS at 100 cc per hour. ?- see problem 2 below. 2. Chronic diarrhea ?- check C. diff / GI panel given recent travel. if negative start immodium as patient has not tried this in the past. ?- patient has had extensive workup for possibe inflammatory or microscopic colitis in the past and has been negative. Will not obtain additional workup her e other than above GI panel 3. h/o HTN ?- hold home medications, BP soft on admission. 4. Hypotension, present on admission, due to hypovolemia ?- suspect due to dehydration, leukocytosis likely reactive but will rule out infectious etiologies as noted above. UA is negative. GI panel ordered. ?- continue IV fluids. Code: Full Surrogate decision maker: Is patient's daughter DVT: Lovenox daily Quality VTE Deep Vein Thrombosis/Pulmonary Embolism Present on Admission: No
--- NOTE | 2023-01-20 10:20 | P.DS_ITS ---
History of Present Illness History of Present Illness Date Patient Seen: 01/20/23 Chief complaint: diarrhea Narrative: Patient eager to go home. Feels good. Discharge Providers Provider Date of admission: 01/19/23 15:24 Discharge Date: 01/20/23 Primary care physician: Doctor Melisa MD Discharge provider: Shaneka Wilde MD Summary Hospital Course Discharge Diagnosis: Hyponatremia, acute, present on admission Acute on Chronic diarrhea Hypotension acute with HTN history Dehydration acute Leukocytosis acute Mild anemia likely chronic Anxiety, chronic Hyperlipidemia, chronic Gastroenteritis, acute present on admission Chronic comorbidities: HOCM (hypertrophic obstructive cardiomyopathy) Schatzki's ring of distal esophagus Secondary hyperparathyroidism H/O esophagogastroduodenoscopy Hospital Course: Abelino Ruiz is a 77 year old female with PMH of chronic diarrhea, secondary hyperparathyroidism (with electrolyte abnormalities), HTN with HCM, GERD with schatzski ring who presented To the ER with worsening weakness over the past couple of weeks. She has had diarrhea her whole life and has been able to deal with it without issue. On presentation, she reported explosive bowel movements and urgency when she feels the need to go. She denied rectal or abdominal pain. She has had intermittent nausea and vomiting with episodes and as a result of this the patient was drinking copious amounts of water. She has had an extensive workup with her PCP, including lab testing and colonoscopy approx 6 months ago which was normal per patient report. What was new on presentation was profound fatigue and weakness which happened after episodes of her diarrhea. She denied numbness, tingling. She has not had any weight loss or fever. She denied chest pain, rash, palpitations, shortness of breath, or leg edema. She traveled to [facility] recently, but diarrhea predated the trip. She denied any sick contacts. With the hydration, intravenous lactated Ringer's bolus, and holding antihypertensive medication, the patient decrease her white blood count from 14.0-9.6 overnight, improved her sodium level from 128-133 in stabilize her blood pressure to 142/76 from a low of 71 over 43 in the ER. Patient did have an episode of elevated temperature of 100.1? and this would be concerning for gastroenteritis however temperature resolved to normal quickly. Procalcitonin has been normal. Blood cultures are still pending and these will be followed following the discharge and the patient informed of the results. C difficile toxin test was never collected and patient's quick resolution without treatment to her normal pattern of diarrhea seems to rule this out. Overall pattern was of an acute quickly resolving gastroenteritis on top of patient's regular chronic diarrhea causing hypotension as well as hyponatremia. All resolved to baseline the time of discharge. Patient's diuretic will be held on discharge and should not be reinitiated in the 77-year-old woman with problems of diarrhea and hyponatremia. Patient will be prescribed loperamide 2 mg to be taken 1 tablet whenever a diarrhea movement and to be held if stool is formed. She was advised that instead of drinking water her drink of choice should be either Pedialyte or Gatorade Fit (should specifically be Gatorade Fit). Status at Discharge Cognitive/behavioral status at discharge: oriented and at baseline, oriented Functional status at discharge: independent ambulation Overall status at discharge: patient is back to baseline Time Spent with Patient Time spent: Greater than 30 minutes Exam Vital Signs (past 8 hours): - 01/20/23 03:46 01/20/23 05:00 01/20/23 07:00 Temperature 99.9 F H 97.5 F L Pulse Rate 67 84 Respiratory Rate 18 17 Blood Pressure 107/59 L 142/76 H Pulse Oximetry 100 100 98 Oxygen Delivery Method Room Air Oxygen Flow Rate 0 0 Oxygen Delivery Method Room Air Oxygen Flow Rate 0 Narrative Exam Narrative: General:? Patient is well developed and well nourished, in no distress at this time. HEENT:? Normocephalic, atraumatic, extraocular muscles intact, oral pharynx is clear and mucous membranes are moist. Neck: supple and symmetric, trachea is midline, no cervical adenopathy. Negative for JVD Chest:? Normal AP diameter and contour without kyphoscoliosis, no tachypnea, equal chest rise bilaterally. Lungs:? CTA b/l no wheezing rhonchi or rales. Cardio:?RRR no m/r/g. Abdomen: S NT ND. No CVA tenderness. Musculoskeletal:? Muscle strength and tone are equal within normal limits, no deformity. Extremities: No edema or joint effusions. No cyanosis or clubbing. Skin:? Pale,? Warm to touch,dry and intact without rashes, ulcerations or petechiae.? Neuro:? Alert and orientated x3,? sensation to touch intact in all extremities, no gross deficits noted of cranial nerves. Psych:? Patient has a well-kept appearance, appropriate affect, mental status attitude thought context and judgment are appropriate for age. Objective Labs 01/20/23 05:21 01/20/23 05:21 Labs: Laboratory Results - last 24 hr 01/19/23 01/19/23 01/19/23 13:29 13:29 13:29 WBC 14.0 H RBC 3.98 L Hgb 11.9 L Hct 35.2 L MCV 88.3 MCH 30.0 MCHC 33.9 RDW 13.7 Plt Count 166 Neut % (Auto) 72.6 Lymph % (Auto) 20.4 L Ogle % (Auto) 6.2 Eos % (Auto) 0.4 L Baso % (Auto) 0.4 Neut # (Auto) 68328 H Lymph # (Auto) 2800 Ogle # (Auto) 900 Eos # (Auto) 100 Baso # (Auto) 100 PT 10.7 INR 0.9 APTT 21 L Sodium 125 L Potassium 4.2 Chloride 92 L Carbon Dioxide 26 BUN 27 H Creatinine 1.03 Estimated GFR 56 L BUN/Creatinine Ratio 26.2 H Glucose 147 H Lactate Calcium 10.7 H Magnesium Total Bilirubin 1.2 AST 28 ALT 18 Alkaline Phosphatase 69 Total Protein 7.2 Albumin 4.3 Globulin 2.9 Albumin/Globulin Ratio 1.5 Lipase Procalcitonin TSH Urine RBC Urine WBC Ur Squamous Epith Cells Urine Bacteria Ur Culture Indicated? Blood Type Antibody Screen 01/19/23 01/19/23 01/19/23 13:29 13:29 13:29 WBC RBC Hgb Hct MCV MCH MCHC RDW Plt Count Neut % (Auto) Lymph % (Auto) Ogle % (Auto) Eos % (Auto) Baso % (Auto) Neut # (Auto) Lymph # (Auto) Ogle # (Auto) Eos # (Auto) Baso # (Auto) PT INR APTT Sodium Potassium Chloride Carbon Dioxide BUN Creatinine Estimated GFR BUN/Creatinine Ratio Glucose Lactate 3.2 H Calcium Magnesium Total Bilirubin AST ALT Alkaline Phosphatase Total Protein Albumin Globulin Albumin/Globulin Ratio Lipase 240 Procalcitonin 0.05 TSH Urine RBC Urine WBC Ur Squamous Epith Cells Urine Bacteria Ur Culture Indicated? Blood Type A Negative Antibody Screen Negative 01/19/23 01/19/23 01/19/23 13:29 15:15 15:56 WBC RBC Hgb Hct MCV MCH MCHC RDW Plt Count Neut % (Auto) Lymph % (Auto) Ogle % (Auto) Eos % (Auto) Baso % (Auto) Neut # (Auto) Lymph # (Auto) Ogle # (Auto) Eos # (Auto) Baso # (Auto) PT INR APTT Sodium Potassium Chloride Carbon Dioxide BUN Creatinine Estimated GFR BUN/Creatinine Ratio Glucose Lactate 1.2 Calcium Magnesium 2.1 Total Bilirubin AST ALT Alkaline Phosphatase Total Protein Albumin Globulin Albumin/Globulin Ratio Lipase Procalcitonin TSH Urine RBC 0-1/hpf Urine WBC 0-1/hpf Ur Squamous Epith Cells None seen Urine Bacteria None seen Ur Culture Indicated? Cult not indicated Blood Type Antibody Screen 01/19/23 01/20/23 01/20/23 19:36 05:21 05:21 WBC 9.6 RBC 3.36 L Hgb 10.2 L Hct 29.7 L MCV 88.3 MCH 30.5 MCHC 34.5 RDW 13.7 Plt Count 113 L Neut % (Auto) 68.7 Lymph % (Auto) 22.3 L Ogle % (Auto) 6.6 Eos % (Auto) 1.7 L Baso % (Auto) 0.7 Neut # (Auto) 6600 Lymph # (Auto) 2100 Ogle # (Auto) 600 Eos # (Auto) 200 Baso # (Auto) 100 PT INR APTT Sodium 128 L 133 L Potassium 4.7 4.5 Chloride 102 103 Carbon Dioxide 22 23 BUN 20 H 16 Creatinine 0.94 0.84 Estimated GFR > 60 > 60 BUN/Creatinine Ratio 21.3 19.0 Glucose 129 H 90 Lactate Calcium 9.2 9.5 Magnesium 1.7 Total Bilirubin 0.8 AST 26 ALT 17 Alkaline Phosphatase 49 Total Protein 6.1 L Albumin 3.4 L Globulin 2.7 Albumin/Globulin Ratio 1.3 Lipase Procalcitonin TSH Urine RBC Urine WBC Ur Squamous Epith Cells Urine Bacteria Ur Culture Indicated? Blood Type Antibody Screen 01/20/23 05:21 WBC RBC Hgb Hct MCV MCH MCHC RDW Plt Count Neut % (Auto) Lymph % (Auto) Ogle % (Auto) Eos % (Auto) Baso % (Auto) Neut # (Auto) Lymph # (Auto) Ogle # (Auto) Eos # (Auto) Baso # (Auto) PT INR APTT Sodium Potassium Chloride Carbon Dioxide BUN Creatinine Estimated GFR BUN/Creatinine Ratio Glucose Lactate Calcium Magnesium Total Bilirubin AST ALT Alkaline Phosphatase Total Protein Albumin Globulin Albumin/Globulin Ratio Lipase Procalcitonin TSH 1.51 Urine RBC Urine WBC Ur Squamous Epith Cells Urine Bacteria Ur Culture Indicated? Blood Type Antibody Screen PFSH Medical History HOCM (hypertrophic obstructive cardiomyopathy) HTN (hypertension) Schatzki's ring of distal esophagus Secondary hyperparathyroidism Surgical History H/O esophagogastroduodenoscopy Social History household members: spouse Smoking Status: Former smoker alcohol intake: current Discharge Plan Discharge Plan Patient Disposition: Home Discharge orders & Medications Prescriptions: New loperamide 2 mg tablet 2 mg PO DAILY Qty: 30 0RF Continued lisinopril 40 mg tablet 40 mg PO DAILY atorvastatin 80 mg tablet 80 mg PO BEDTIME paroxetine HCl 10 mg tablet 10 mg PO BID potassium chloride 20 mEq tablet,ER particles/crystals 20 meq PO DAILY Discontinued hydrochlorothiazide 12.5 mg tablet 12.5 mg PO DAILY Follow up/Referrals: Melisa,MD [place] [Primary Care Provider] - Visit Report/Discharge Packet Stand Alone Forms: Patient Portal/API, Stroke Signs & Symptoms Discharge Data Primary Care Provider: Doctor Melisa Quality VTE Deep Vein Thrombosis/Pulmonary Embolism Present on Admission: No
--- NOTE | 2023-01-20 12:28 | CM.DANOTE ---
DCP: Chart review for case, met with patient at bedside, they agree to case management assessment. Completed DCP assessment based on information available. Patient is a 77 year old presented to ER by private auto admitted to care of hospitalist team. PCP: is new to her but seen last week Dr. Iris Vasques at [facility] in [place], [place] Payor: [facility] CC: Nausea, diarrhea, dehydration, hypotension Met with patient in room 209. She offers that she is independent in all activities of daily living, drives, and enjoy living in both [place] ([address] [place] [address] ) and [place], [place]. She states she is normally healthy and active but this illness, especially the diarrhea has made her feel weak. She denies any DME use, no prior physical rehab. She states she feels she has a good support system with her locally, and daughter who is a retired RN in [place]. No foreseen barriers to safe discharge home today. P: DC home today with who patient states will be hi lo driver Rosalba Ray RN, CM Discharge Planning/Care Management CM Discharge Assessment Start: 01/20/23 12:02 Freq: Status: Active Protocol: Document 01/20/23 12:02 BQ (Rec: 01/20/23 12:07 BQ [id number]) Discharge Planning Assessment Assigned Digital Music Instructor Rosalba Ray RN, CM DPOA/Assigned Designee Name Rainer Riggs [phone] Contact Information Daughter Ifeoma Dumont MERLENE [phone] Advance Directives? Yes Advance Directives on File No History Provided By Patient,Medical Record Has Patient been admitted in last 30 No days? Prior Living Arrangements House Comment Lives between [place] and [place], [place] Household Members spouse Type of transporation used prior to Drives own vehicle admit Independent with ADL's Yes Is patient alert and oriented? Yes Caregiver for Another No Barriers to Discharge No Discharge Plan Home Referrals Initiated None needed Whiteboard Updated in Patient Room with Yes name and ext. # of Digital Music Instructor Review Status In Process Next Review Type Continued Stay Review
--- NOTE | 2023-01-20 12:48 | PC.NURSE ---
Day shift: Pt continues to deny pain. VS WNL. No BM, no nausea. Discharge instructions gone over with patient and her spouse. All questions answered and they stated understanding. Both PIVs and tele d/c'ed prior to discharge. Stephy Hightower escorted patient to exit via wheelchair.
== END 2023-01-20 12:50 | disposition home or self-care (01) | DRG 641 ==
LOC: ED 15:20 → AC 15:25
PROVIDERS: Admitting Provider Internal Medicine; Emergency Provider Emergency Medicine; Referring Provider Emergency Medicine; Visit Provider Internal Medicine
DX: E87.1 Hypo-osmolality and hyponatremia (principal); K52.9 Noninfective gastroenteritis and colitis, unspecified; E86.1 Hypovolemia; E86.0 Dehydration; I10 Essential (primary) hypertension; E78.5 Hyperlipidemia, unspecified; Z20.822 Contact with and (suspected) exposure to COVID-19; Z87.891 Personal history of nicotine dependence
CPT/HCPCS: 36415; 51798; 74177; 80048; 80053; 81003; 81015; 83605; 83690; 83735; 84145; 84443; 85025; 85610; 85730; 86850; 86900; 86901; 87040; 93005; 96361; 96365; 96375; 99284; 99291; C9113; J2543; Q9967